=== PATIENT | male | born 1995 | race Caucasian/White ===

== ENCOUNTER 2023-04-06 19:31 | Emergency (ER) | payer OTHER ==
[~2023-04-06] VITALS: Ht 185.4 cm; Wt 157.0 kg
[2023-04-06 19:38] VITALS: BP 109/76; PULSE 106; RESP 18; TEMP 98.3; O2SAT 96
== END 2023-04-06 20:47 | disposition left against medical advice (07) ==
LOC: ER 19:31
DX: H57.10 Ocular pain, unspecified eye (principal); Z53.21 Procedure and treatment not carried out due to patient leaving prior to being seen by health care provider
CPT/HCPCS: 99281